=== PATIENT | male | born 1985 | race Hispanic/Latino ===

== ENCOUNTER 2019-02-26 08:41 | Outpatient (CLI) | payer OTHER ==
--- NOTE | 2019-02-26 09:33 | ULT ---
Scrotal ultrasound: 02/26/2019 COMPARISON: None HISTORY: Palpable abnormality on the right TECHNIQUE: Multiplanar grayscale sonographic imaging of the scrotal contents obtained with Doppler in terrogation of bilateral testicles including color flow and spectral analysis FINDINGS: The right testicle measures 4.1 x 2.7 x 2.3 cm and the left testicle measures 4.2 x 2.9 x 1 .9 cm. The testicles demonstrate symmetric normal blood flow. No evidence for testicular mass. No hydrocele noted on either side. The right epididymal head measures 1.8 x 1.5 cm and contains a cyst measuring 1.5 x 0.7 cm. Left epid idymal head measures 1.6 x 1.1 cm and contains a 1.1 x 0.9 cm cyst. IMPRESSION: Bilateral epididymal head cysts. No acute findings.
== END 2019-02-26 08:42 | disposition home or self-care (01) ==
LOC: BICULT 08:41
PROVIDERS: ATTEND Urology
DX: N43.40 Spermatocele of epididymis, unspecified (principal); R35.0 Frequency of micturition; N50.3 Cyst of epididymis
CPT/HCPCS: 36415; 76870; 81001; 93976